=== PATIENT | male | born 1985 | race Caucasian/White ===

== ENCOUNTER 2017-06-05 19:43 | Emergency (ER) | payer OTHER, SELFPAY ==
[~2017-06-05] VITALS: Ht 182.9 cm; Wt 141.0 kg
[2017-06-05 19:43] VITALS: BP 142/91
[2017-06-05] MEDS ORDERED: OXYcodone/APAP 5/325MG TABLET PO ONE (21:00)
[2017-06-05] MEDS ORDERED: PLEASE ENTER ALLERGIES MC SCH (21:00)
[2017-06-05] MEDS ORDERED: OXYcodone/APAP 5/325MG TABLET ONE (21:00)
== END 2017-06-05 21:16 | disposition home or self-care (01) ==
LOC: ED 21:05
DX: S39.012A Strain of muscle, fascia and tendon of lower back, initial encounter (principal); X58.XXXA Exposure to other specified factors, initial encounter; Y93.89 Activity, other specified; Y92.89 Other specified places as the place of occurrence of the external cause; Y99.8 Other external cause status
CPT/HCPCS: 72110; 99284

== ENCOUNTER 2019-06-28 06:33 | Emergency (ER) | payer BC, OTHER ==
[~2019-06-28] VITALS: Ht 180.3 cm; Wt 157.4 kg
[2019-06-28 06:35] VITALS: BP 167/106
[2019-06-28] MEDS ORDERED: LIDOCAINE-MPF 1%, 5ML ONE (06:49)
[2019-06-28] MEDS ORDERED: LIDOCAINE-MPF 1%, 5ML INFIL ONE (07:00)
[2019-06-28] MEDS ORDERED: SILVER NITRATE STICK TP ONE ×2 (07:00→07:11)
--- NOTE | 2019-06-28 07:19 | NUR ---
Dick Lobo PA-C at bedside for I&D.
--- NOTE | 2019-06-28 07:36 | NUR ---
TECH AT BEDSIDE FOR DRESSING PLACEMENT.
--- NOTE | 2019-06-28 07:49 | NUR ---
MARGO COMPLETED BY DAJUAN ROBLEDO. PT GIVEN D/C PAPERWORK, VERBALIZED UNDERSTANDING. PT WITH STEADY GAIT UPON D/C, HAS ALL OWN BELONGINGS.
== END 2019-06-28 07:53 | disposition home or self-care (01) ==
LOC: ED 06:49
DX: L60.0 Ingrowing nail (principal)
CPT/HCPCS: 11730; 99284